=== PATIENT | male | born 1990 | race African-American/Black ===

== ENCOUNTER 2024-02-04 04:19 | Emergency (ER) | payer OTHER ==
[~2024-02-04] VITALS: Ht 193 cm; Wt 88.0 kg
[2024-02-04 05:06] VITALS: BP 140/87; PULSE 77; RESP 18; TEMP 97.7; O2SAT 99
[2024-02-04] MEDS: HYDROcodone-ACET 10/325MG TAB PO ONE (07:17)
[2024-02-04] MEDS ORDERED: BACL10TA PO (07:45)
[2024-02-04] MEDS ORDERED: IBUP-1456 PO (07:45)
== END 2024-02-04 07:50 | disposition home or self-care (01) ==
LOC: ER 04:19
DX: S39.012A Strain of muscle, fascia and tendon of lower back, initial encounter (principal); S29.012A Strain of muscle and tendon of back wall of thorax, initial encounter; V49.9XXA Car occupant (driver) (passenger) injured in unspecified traffic accident, initial encounter; Y93.55 Activity, bike riding; Y92.89 Other specified places as the place of occurrence of the external cause; Y99.8 Other external cause status
CPT/HCPCS: 72070; 72100